=== PATIENT | male | born 1955 | race Two or more races ===

== ENCOUNTER → 2024-11-09 | Emergency (ER) | payer OTHER ==
[~2024-11-09] VITALS: Ht 170.2 cm; Wt 83.9 kg
[~2024-11-09] MED LIST: ATORVASTATIN CA10 MG PO; CEFTRIAXONE SODIUM 1,000 MG VIAL IV STA; LOSARTAN POTASS25 MG PO; METFORMIN HCL1000 M3 PO; OMEPRAZOLE MAGN20 MG PO; PANTOPRAZOLE SO40 MG PO; TAMS0.4C PO
[2024-11-09 17:14] LABS: HEMATOCRIT 41.9 % (39.0-48.0); HEMOGLOBIN 14.3 g/dL (13-16.00); MEAN CELL VOLUME 91.7 fL (80.0-100.00); MEAN CORPUSCULAR HEMOGLOBIN 31.4 pg (27.00-32.0); MEAN CORPUSCULAR HGB CONC 34.3 g/dl (32.0-36.0); PH,URINE 6.5 (5.0-8.0); PLATELET COUNT 261 K/uL (150-450); RED BLOOD COUNT 4.57 M/uL (4.00-6.00); RED CELL DISTRIBUTION WIDTH 13.9 % (11.5-14.5); URINE APPEARANCE Clear; URINE BILIRRUBIN Negative (NEGATIVE); URINE BLOOD NHT; URINE COLOR Yellow; URINE GLUCOSE Negative (NEGATIVE); URINE KETONE Negative (NEGATIVE); URINE LEUKOCYTE Small; URINE NITRATE Negative; URINE PROTEIN Trace (NEGATIVE); URINE UROBILINOGEN 0.2 E.U./dl
[2024-11-09 17:18] LABS: URINE BACTERIA 34.2 uL (0.0-1933); URINE EPITHELIAL CELLS 1.8 uL (0.0-38.8); URINE RBC 30.1 uL (0.0-20.8); URINE WBC 81.6 uL (0.0-23.2)
[2024-11-09 17:57] LABS: CALCIUM 9.6 mg/dL (8.5-10.1); CREATININE SERUM 1.11 mg/dL (0.70-1.30); GFR 65.3; POTASSIUM 4.45 mEq/L (3.5-5.1)
== END | disposition home or self-care (01) ==
LOC: ER 13:27
PROVIDERS: General Practice
DX: R39.14 Feeling of incomplete bladder emptying (principal)
CPT/HCPCS: 36415; 96365; 99282; J0696

== ENCOUNTER 2025-01-30 05:20 | Emergency (ER) | payer OTHER ==
[~2025-01-30] VITALS: Ht 170.2 cm; Wt 83.9 kg
[~2025-01-30 05:20] MED LIST changes: -CEFTRIAXONE SODIUM 1,000 MG VIAL IV STA
[2025-01-30 06:37] LABS: PH,URINE 5.5 (5.0-8.0); URINE APPEARANCE Clear; URINE BILIRRUBIN Negative (NEGATIVE); URINE BLOOD Negative; URINE COLOR Yellow; URINE GLUCOSE Negative (NEGATIVE); URINE KETONE Negative (NEGATIVE); URINE LEUKOCYTE Small; URINE NITRATE Negative; URINE PROTEIN Trace (NEGATIVE); URINE UROBILINOGEN 0.2 E.U./dl
[2025-01-30 06:59] LABS: URINE BACTERIA 35.4 uL (0.0-1933); URINE RBC 27.8 uL (0.0-20.8); URINE WBC 35.9 uL (0.0-23.2)
[2025-01-30 07:24] LABS: URINE CRYSTALS FEW /HPF
[2025-01-30] MEDS ORDERED: CIPRO500 MG PO (08:21)
== END 2025-01-30 08:32 ==
LOC: ER 05:22
PROVIDERS: General Practice
DX: R33.8 Other retention of urine (principal); I10 Essential (primary) hypertension; E11.9 Type 2 diabetes mellitus without complications; Z79.84 Long term (current) use of oral hypoglycemic drugs

== ENCOUNTER 2025-02-01 09:12 | Emergency (ER) | payer OTHER ==
[~2025-02-01] VITALS: Ht 170.2 cm; Wt 83.9 kg
[~2025-02-01 09:12] MED LIST changes: +CIPRO500 MG PO
== END 2025-02-01 10:08 | disposition home or self-care (01) ==
LOC: ER 09:15
DX: Z46.6 Encounter for fitting and adjustment of urinary device (principal)

== ENCOUNTER 2025-02-01 14:14 | Emergency (ER) | payer OTHER ==
[~2025-02-01] VITALS: Ht 170.2 cm; Wt 83.9 kg
== END 2025-02-01 15:19 | disposition home or self-care (01) ==
LOC: ER 14:17
DX: R33.8 Other retention of urine (principal); I10 Essential (primary) hypertension; E11.9 Type 2 diabetes mellitus without complications; Z79.84 Long term (current) use of oral hypoglycemic drugs

== ENCOUNTER 2025-02-08 11:11 | Emergency (ER) | payer OTHER ==
[~2025-02-08] VITALS: Ht 170.2 cm; Wt 83.9 kg
[2025-02-08] MEDS ORDERED: METRONIDAZOLE500 MG (11:39)
[2025-02-08] MEDS ORDERED: PROSCAR5 MG (11:39)
[2025-02-08 14:19] LABS: HEMATOCRIT 41.4 % (39.0-48.0); HEMOGLOBIN 13.9 g/dL (13-16.00); MEAN CELL VOLUME 94.7 fL (80.0-100.00); MEAN CORPUSCULAR HEMOGLOBIN 31.8 pg (27.00-32.0); MEAN CORPUSCULAR HGB CONC 33.6 g/dl (32.0-36.0); PLATELET COUNT 291 K/uL (150-450); RED BLOOD COUNT 4.37 M/uL (4.00-6.00)
[2025-02-08 14:39] LABS: BILIRUBIN TOTAL 0.65 mg/dL (0.3-1.2); CALCIUM 9.1 mg/dL (8.5-10.1); CREATININE SERUM 1.17 mg/dL (0.70-1.30); GFR 61.45; GLOBULINA 3.9 G/DL (2.4-3.5); POTASSIUM 4.09 mEq/L (3.5-5.1); TOTAL PROTEIN 7.9 gm/dL (6.4-8.2)
[2025-02-08 17:39] LABS: URINE APPEARANCE Clear; URINE BILIRRUBIN Negative (NEGATIVE); URINE BLOOD Small; URINE COLOR Yellow; URINE GLUCOSE Negative (NEGATIVE); URINE KETONE Negative (NEGATIVE); URINE LEUKOCYTE Small; URINE NITRATE Negative; URINE PROTEIN Negative (NEGATIVE); URINE UROBILINOGEN 0.2 E.U./dl
[2025-02-08 17:44] LABS: URINE BACTERIA 58.7 uL (0.0-1933); URINE EPITHELIAL CELLS 7.4 uL (0.0-38.8); URINE RBC 7.3 uL (0.0-20.8); URINE WBC 38.7 uL (0.0-23.2)
[2025-02-08 18:00] LABS: URINE CAST 0.29 uL (0.0-1.40)
== END 2025-02-08 18:44 | disposition home or self-care (01) ==
LOC: ER 11:14
DX: Z46.6 Encounter for fitting and adjustment of urinary device (principal)